=== PATIENT | male | born 1965 | race Caucasian/White ===

== ENCOUNTER 2016-06-07 08:14 | Outpatient (CLI) | payer MEDICAID | END 2016-06-07 08:15 | disposition home or self-care (01) | DX: R53.83 Other fatigue (principal); F17.210 Nicotine dependence, cigarettes, uncomplicated; D64.9 Anemia, unspecified ==

== ENCOUNTER 2017-01-12 15:56 | Outpatient (CLI) | payer MEDICAID ==
--- NOTE | 2017-01-13 09:27 | XRAY Report ---
ACUTE ABDOMEN SERIES: 01/12/2017 CLINICAL INDICATION: Abdominal pain. FINDINGS: Supine and upright views of the abdomen and a frontal view of the chest demonstrate a norm al bowel gas pattern. No free intraperitoneal gas is seen. No abnormal calcifications are appreciat ed overlying either renal shadow. Frontal view of the chest demonstrates a normal cardiac silhouette and clear lungs. IMPRESSION: NO EVIDENCE OF BOWEL OBSTRUCTION OR PERFORATION. NO EVIDENCE OF ACUTE CARDIOPULMONARY D ISEASE. JOB #: [id number] EXT JOB #:[id number]
== END 2017-01-12 15:57 | disposition home or self-care (01) ==
LOC: DI.N 15:56
PROVIDERS: ATTEND Physician Assistant
DX: R10.9 Unspecified abdominal pain (principal); F17.210 Nicotine dependence, cigarettes, uncomplicated; F10.10 Alcohol abuse, uncomplicated
CPT/HCPCS: 74022